=== PATIENT | male | born 1940 | race Caucasian/White ===

== ENCOUNTER 2016-12-31 10:33 | Emergency (ER) | payer MEDICARE, BC ==
[~2016-12-31] VITALS: Ht 182.9 cm; Wt 130.0 kg
[~2016-12-31 10:33] MED LIST: ADVAIR DISK1 IN; ALLOPURINOL100 MG PO; ATENOLOL25 MG PO; CLINDAMYCIN300 M1 PO; COUMADIN2.5 MG PO; COUMADIN5 MG PO; DIGOXIN0.125 MG PO; FUROSEMIDE20 MG PO; GLIMEPIRIDE1 MG PO; GLIMEPIRIDE2 MG PO; K-DUR/KLOR-CON20 MEQ PO; KETOCONAZOLE2 % EX; METFORMIN500 MG PO; MONTELUKAST SOD10 MG PO; SIMVASTATIN10 MG PO; ZETIA10 MG OR; ZOCOR10 MG PO
[2016-12-31 11:06] LABS: URINE BILIRUBIN - DIPSTICK NEGATIVE (NEGATIVE); URINE BLOOD DIPSTICK TRACE-INTACT (NEGATIVE); URINE CLARITY CLEAR; URINE COLOR YELLOW; URINE GLUCOSE - DIPSTICK NEGATIVE (NEGATIVE); URINE KETONE NEGATIVE (NEGATIVE); URINE LEUK ESTERASE NEGATIVE (Negative); URINE NITRITE - DIPSTICK NEGATIVE (Negative); URINE PH 5.5 (4.5-8.0); URINE PROTEIN - DIPSTICK NEGATIVE (NEG-TRACE); URINE UROBILINOGEN - DIPSTICK 0.2 E.U./dL (0.2)
[2016-12-31 11:09] LABS: HEMATOCRIT 40.2 % (39.0-50.0); HEMOGLOBIN 12.6 g/dl (14.0-18.0); IMMATURE GRANULOCYTES 0.6 % (0.0-1.0); MEAN CORPUSCULAR HGB 27.3 pG CALC (26.0-32.0); MEAN CORPUSCULAR HGB CONC 31.3 g/L CALC (32.0-36.0); NEUT# 10.24 thou/uL (1.82-7.42); RED BLOOD COUNT 4.62 mill/uL (4.70-6.10); RED CELL DISTRI WIDTH 13.8 % (11.5-15.5)
[2016-12-31 11:19] LABS: ALBUMIN 4.3 g/dL (3.2-5.0); ALKALINE PHOSPHATASE 90 u/l (38-126); ANION GAP 17 (6-22 (CALC)); BILIRUBIN, TOTAL 0.4 mg/dL (0.0-1.4); BUN 20 mg/dL (8-23); BUN/CREATININE RATIO 27 (12-20 (CALC)); CALCIUM 9.6 mg/dL (8.4-10.2); CARBON DIOXIDE 26 mmol/l (22-30); CHLORIDE 104 mmol/l (95-108); CREATININE 0.7 mg/dL (0.7-1.3); GFR > 60 ML/MIN (>=60 (CALC)); GFR FOR AFR.AMER. > 60 ML/MIN (>=60 (CALC)); GLUCOSE 213 mg/dL (82-115); POTASSIUM 4.3 mmol/l (3.5-5.1); SGOT/AST 39 u/l (19-48); SGPT/ALT 50 u/l (11-66); SODIUM 143 mmol/l (137-146); TOTAL PROTEIN 7.5 g/dL (6.3-8.2)
[2016-12-31 11:30] LABS: INTERNATIONAL NORMALIZED RATIO 4.1 RATIO (0.7-1.3); PROTHROMBIN TIME 49.8 SECONDS (9.0-12.5)
[2016-12-31 11:31] LABS: MYOGLOBIN 163 ng/mL (0 - 121)
[2016-12-31] MEDS ORDERED: KEFLEX500 MG PO (12:51)
[2016-12-31 12:53] VITALS: BP 123/60
== END 2016-12-31 13:06 | disposition home or self-care (01) ==
LOC: ED 10:33
PROVIDERS: Emergency Medicine
DX: S39.012A Strain of muscle, fascia and tendon of lower back, initial encounter (principal); S80.211A Abrasion, right knee, initial encounter; I48.91 Unspecified atrial fibrillation; E11.9 Type 2 diabetes mellitus without complications; J44.9 Chronic obstructive pulmonary disease, unspecified; I50.9 Heart failure, unspecified; N28.1 Cyst of kidney, acquired; K80.20 Calculus of gallbladder without cholecystitis without obstruction; R79.1 Abnormal coagulation profile; T45.515A Adverse effect of anticoagulants, initial encounter; W01.0XXA Fall on same level from slipping, tripping and stumbling without subsequent striking against object, initial encounter; Y92.008 Other place in unspecified non-institutional (private) residence as the place of occurrence of the external cause; Z95.0 Presence of cardiac pacemaker